=== PATIENT | female | born 1975 | race Caucasian/White ===

== ENCOUNTER 2018-03-15 16:50 | Emergency (ER) | payer OTHER ==
[2018-03-15 20:05] VITALS: BP 132/88
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
== END 2018-03-15 20:03 | disposition home or self-care (01) ==
LOC: ED 16:50
DX: S82.62XA Displaced fracture of lateral malleolus of left fibula, initial encounter for closed fracture (principal); V18.0XXA Pedal cycle driver injured in noncollision transport accident in nontraffic accident, initial encounter; Y93.55 Activity, bike riding; Y92.89 Other specified places as the place of occurrence of the external cause; Z87.891 Personal history of nicotine dependence
CPT/HCPCS: 99282